=== PATIENT | female | born 1955 | race Caucasian/White ===

== ENCOUNTER 2017-04-20 19:28 | Emergency (ER) | payer MEDICAID ==
[2017-04-20] MEDS ORDERED: HYDROCODONE/APAP 5/325MG TABLET PO ONE (19:42)
--- NOTE | 2017-04-20 19:49 | Emergency Department Record ---
History of Present Illness - General Chief Complaint: Ankle/Foot Injury Stated Complaint: ANKLE PAIN FROM FALL Time Seen by Provider: 04/20/17 19:38 Source: Patient Mode of Arrival: EMS Limitations: No limitations - History of Present Illness Initial Comments: The patient tripped on the last step going down the stairs and inverted her R ankle sustaining pain and discomfort. She denies any other injuries. She was brought into the ER by EMS and is reportedly to be out of her oxycontin and norco. MD Complaint: Ankle injury, Foot injury Onset/Timin -: Minutes(s) Type of Injury: Unknown Place: Home Severity: Moderate Severity scale (1-10): 6 Improves With: Nothing Worsens With: Movement, Palpation, Weight bearing Context: Walking Associated Symptoms: Swelling, Unable to bear weight - Related Data Home Medications Medication Instructions Recorded Confirmed Last Taken Hydrochlorothiazide [Microzide] 25 mg PO DAILY 05/16/14 04/20/17 11/27/15 Levothyroxine Sodium [Synthroid] 88 mcg PO DAILYTHY 05/16/14 04/20/17 11/27/15 Albuterol Sulfate [Proventil Hfa] 1 puff INH Q6H PRN 01/01/15 04/20/17 11/27/15 Aspirin [Aspirin EC] 81 mg PO DAILY 01/01/15 04/20/17 11/27/15 Atenolol [Tenormin] 100 mg PO DAILY 01/01/15 04/20/17 11/27/15 Cetirizine HCl [Zyrtec] 10 mg PO DAILY 01/01/15 04/20/17 11/27/15 Fluticasone Propionate [Flonase 15.8 ml NS DAILY 01/01/15 04/20/17 11/27/15 Allergy Relief] Venlafaxine HCl [Effexor Xr] 150 mg PO DAILY 01/01/15 04/20/17 11/27/15 Buspirone HCl [Buspirone HCl] 10 mg PO BID 11/01/15 04/20/17 11/27/15 Previous Rx's Medication Instructions Recorded Tramadol HCl [Ultram] 50 mg PO Q8H PRN #20 tab 11/27/15 Hydrocodone/Acetaminophen [[place] 1 tab PO Q6H PRN #20 tab 06/24/17 10mg/325mg] Allergies Allergy/AdvReac Type Severity Reaction Status Date / Time cephalexin monohydrate Allergy ANAPHYLAXIS Verified 04/20/17 19:37 [From Keflex] Travel Screening - Travel/Exposure Within Last 30 Days Have you traveled within the last 30 days?: No - Travel/Exposure Within Last Year Have you traveled outside the [place] in the last year?: No - Additonal Travel Details Have you been exposed to anyone with a communicable illness?: No - Travel Symptoms Symptom Screening: None Past Medical History - SOCIAL HISTORY Smoking Status: Current every day smoker Alcohol Use: None Drug Use: None - RESPIRATORY Hx Respiratory Disorders: Yes Hx Asthma: Yes Hx Bronchitis: Yes (hx) Hx COPD: Yes Hx Pneumonia: Yes (hx) - CARDIOVASCULAR Hx Cardio Disorders: Yes Hx Hypertension: Yes - NEURO Hx Neuro Disorders: Yes Hx Headaches: Yes (Migraines) - GI Hx GI Disorders: No - Hx Genitourinary Disorders: No - ENDOCRINE Hx Endocrine Disorders: Yes Hx Thyroid Disease: Yes (hypothyroid (thyroid removed)) - MUSCULOSKELETAL Hx Musculoskeletal Disorders: Yes Hx Arthritis: Yes Hx Back Injury: Yes - PSYCH Hx Psych Problems: Yes Hx Anxiety: Yes Hx Depression: Yes - HEMATOLOGY/ONCOLOGY Hx Hematology/Oncology Disorders: No Family Medical History Any Significant Family History?: No Hx Cancer: Mother, Grandparents Hx Diabetes: Father, Mother, Brother/Sister, Grandparents Hx Heart Disease: Father, Mother Hx HTN: Father, Mother, Grandparents Physical Exam - General General Appearance: Alert, Cooperative, No acute distress - Head Head exam: Atraumatic, Normocephalic, Normal inspection - Eye Eye exam: Normal appearance, PERRL - Extremities Extremities exam: Normal capillary refill, Tenderness (There is tenderness distal to the R distal fibula over the R TFL area. ), Other (The R ankle joint is stable with no subluxations.). negative: Normal inspection (There is a very mild amount of bruising and swelling to the R proximal foot over the anterior TFL ligament area. ), Full ROM (decreased to the R ankle due to pain.), Joint swelling, Pedal edema Image of Feet: 1 - Tender area with very mild swelling and bruising. 2 - Tender. Course Vital Signs 04/20/17 19:30 Temperature 97.9 F Pulse Rate 54 L Respiratory 22 Rate Blood Pressure 110/65 Pulse Ox 98 - Reevaluation(s) Reevaluation #1: I did discuss the xrays with Dr. Duron and he would like the patient in a [place] Walking boot with crutches and he will see her in the office later this week. 04/20/17 20:36 Medical Decision Making - Data Complexity MDM Data: X-Ray Ordered and/or Reviewed - Radiology Data Radiology results: Report reviewed (R ankle: Neg R foot: distal 4th MT fx oblique, Comminuted 5th MT fx with fx lateral cuboid.) Disposition Disposition: Discharge Clinical Impression: Foot fracture, right Qualifiers: Encounter type: initial encounter Fracture type: closed Qualified Code(s): S92.901A - Unspecified fracture of right foot, initial encounter for closed fracture Disposition: Home, Self-Care Condition: (2) Stable Instructions: Foot Fracture in Adults (ED) Additional Instructions: Please ice and elevate the R foot as directed. Use the walking boot at all time and use crutches and do not weight bear on the R foot. Please use [place] for pain and see DR. Duron in the [facility] later this week. Prescriptions: Hydrocodone/Acetaminophen [[place] 10mg/325mg] 1 tab PO Q6H PRN #20 tab PRN Reason: Pain - General Referrals: [facility] [Provider Group] Forms: Patient Portal Access Time of Disposition: 21:20
[2017-04-20] MEDS ORDERED: MORPHINE SULFATE 5 MG/ML PFS IM ONE (20:36)
--- NOTE | 2017-04-21 11:27 | RADIOLOGY REPORT ---
EXAM: ANKLE RIGHT 3 VIEWS HISTORY: PAIN, INJURY. TECHNIQUE: Three views of the right ankle were performed. FINDINGS: There is osteopenia. There is a minimally displaced fracture deformity of the fifth metatarsal bone. The ankle mortise is intact. IMPRESSION: 1. OSTEOPENIA. NO ANKLE FRACTURE DEFORMITY. 2. MINIMALLY DISPLACED FRACTURE DEFORMITY OF THE FIFTH METATARSAL BONE. JOB NUMBER: [id number] MTDD
--- NOTE | 2017-04-21 11:30 | RADIOLOGY REPORT ---
EXAM: FOOT, RIGHT 3 VIEWS HISTORY: INJURY. TECHNIQUE: Three views of the right foot were performed. FINDINGS: There is osteopenia. There is an oblique fracture deformity of the fourth metatarsal bone. There is a comminuted fracture deformity of the fifth metatarsal bone. There is a fracture deformity of the lateral cuboid bone. IMPRESSION: 1. OSTEOPENIA. 2. MINIMALLY DISPLACED FRACTURE DEFORMITY OF THE LATERAL CUBOID. 3. COMMINUTED FRACTURE DEFORMITY OF THE FIFTH METATARSAL BONE. 4. OBLIQUE FRACTURE DEFORMITY OF THE FOURTH METATARSAL BONE. JOB NUMBER: [id number] MTDD
== END 2017-04-20 22:29 | disposition home or self-care (01) ==
LOC: ER 19:28
DX: S92.214A Nondisplaced fracture of cuboid bone of right foot, initial encounter for closed fracture (principal); S92.341A Displaced fracture of fourth metatarsal bone, right foot, initial encounter for closed fracture; S92.351A Displaced fracture of fifth metatarsal bone, right foot, initial encounter for closed fracture; W10.9XXA Fall (on) (from) unspecified stairs and steps, initial encounter; Y92.009 Unspecified place in unspecified non-institutional (private) residence as the place of occurrence of the external cause
CPT/HCPCS: 99283; 96372; 99284; 73610; 73630; J2270